=== PATIENT | female | born 1990 | race Caucasian/White ===

== ENCOUNTER 2017-05-04 00:39 | Emergency (ER) | payer MEDICAID ==
[2017-05-04 01:33] LABS: % BASOPHILS 0.7 % (0.0-2.0); % EOSINOPHILS 3.6 % (0.0-5.0); % LYMPHOCYTES 33.8 % (20.0-50.0); % MONOCYTES 6.2 % (2.0-10.0); % NEUTROPHILS 55.7 % (40.0-80.0); HEMATOCRIT 36.8 % (41.0-60); HEMOGLOBIN 12.5 gm/dL (12-16); MEAN CELL VOLUME 83.4 fl (81-100); MEAN CORPUSCULAR HEMOGLOBIN 28.3 pg (27.0-31.0); MEAN CORPUSCULAR HGB CONC 33.9 pg (28.0-36.0); PLATELET COUNT 226 Th/cmm (150-400); RED BLOOD COUNT 4.41 Mil/cmm (3.80-5.10); RED CELL DISTRIBUTION WIDTH 12.9 % (11.5-20.0)
[2017-05-04 01:57] LABS: ALB/GLOB RATIO 1.3 (1.0-1.8); ALKALINE PHOSPHATASE 66 U/L (34-104); ANION GAP 8.5 (7.0-16.0); BILIRUBIN,TOTAL 0.3 mg/dL (0.3-1.0); BUN - UREA NITROGEN 14 mg/dL (7-25); CALCIUM SERUM 9.2 mg/dL (8.6-10.3); CARBON DIOXIDE 27.2 mEq/L (21.0-31.0); CHLORIDE 106 mEq/L (98-107); CREATININE - SERUM 0.7 mg/dL (0.6-1.2); GLUCOSE 111 mg/dL (70-105); POTASSIUM SERUM 3.7 mEq/L (3.5-5.1); SGOT 57 U/L (13-39); SGPT/ALT 128 U/L (7-52); SODIUM SERUM 138 mEq/L (136-145)
--- NOTE | 2017-05-04 05:17 | ER Physician Documentation ---
DATE OF SERVICE: 05/04/2017 EMERGENCY ROOM NOTE Female patient, 27. Mother of 4 children. She came here on 05/04/2017 at 1:10 a.m., at which time after triage, the patient was brought to the bed #2. The patient said that she is having itching and some rash on the body and the lower extremities. She said many days ago her school had fumigation and now she is feeling that she does not know whether any mosquito bites because of fumigation or because of dust mites this has occurred. She says she is not taking any significant medication other than she takes ibuprofen that might be causing her the rashes. She came with these rashes and itches. Her past history is essentially benign. HISTORY OF PRESENT ILLNESS: Essentially same as above. PAST MEDICAL HISTORY: Benign and negative. Pediatric diseases. Otherwise, she had a gallbladder surgery when she was 13 years old. She had done x 4. FAMILY HISTORY: Father had diabetes mellitus. MEDICATIONS: The patient takes ibuprofen for pain. SOCIAL HISTORY: She does drink alcoholic beverages. She does not smoke. She does not take any drugs. She is a full code. She has no pain. ALLERGIES: None known allergies according to her. She came from home. At this hour, her review of systems is essentially benign and negative. She was told that she is prediabetic, that was about a year ago. She also said she has a lump on the left side of the abdomen which I checked, essentially looks like a big-type lipoma. She is weighing 220 pounds and the lipoma also looks like about 3 inches x 3 inches side. Somebody said lipoma, somebody said hernia, definitely it is not a hernia, probably it is a fatty tissue. She is very, very fat, short female. The patient is 5 feet 2 inches. PHYSICAL EXAMINATION: VITAL SIGNS: Show 97.4, 89, 19, 98/53, 97% saturation. GENERAL: The patient appears to be obese, short statured, few rashes occurred on the lower extremities are seen, occasional seen on the upper extremities, otherwise benign and negative. CENTRAL NERVOUS SYSTEM: Within normal limits. CHEST: Clear of rales. Trachea is central. Fairly good air entry in both lungs without any rales, rhonchi, or bronchial breathing. ABDOMEN: Shows a left-sided area in upper part of the abdomen just below the costal margin, there is a 3 x 3 area that looks like a fatty tissue, looks like a lipoma or a fatty mass is noted. Otherwise, abdomen is soft, benign, negative rash. SKIN: Few rashes here and there are noted on the lower extremities. Upper extremities, occasional rashes are noted. Otherwise, no rash on the chest, back, or any other place was noted. She said she wore a pajama and when coming home, she wore a half pant after she came to the hospital. CLINICAL IMPRESSION: The patient has some rash on the body, most likely maybe secondary to drug allergy, either ibuprofen that she takes for the pain here and there that she is getting, other possibility is that the patient may be having dust mite infection. Lyme disease needs to be ruled out. Other problems she had were gallbladder surgery 15 years ago and 4 years ago. She has a prediabetic condition diagnosed 1 year ago. We will check her lab out and see what it is and father also had diabetes mellitus. She has obesity. She was advised to lose her weight, tell her physician about losing weight in a timely fashion. Dietary consult; low-fat, low-cholesterol, low-saturated fat diet. At present I am giving Benadryl to the patient and Atarax has been given to the patient. The patient will be instructed not to take any ibuprofen and if anything wrong is detected the nurse will notify me and/or the patient's. JOB# [id number]
== END 2017-05-04 02:15 | disposition home or self-care (01) ==
LOC: ER 00:39
DX: R21 Rash and other nonspecific skin eruption (principal)
CPT/HCPCS: 36415-UA; 80053-TC; 85025-TC; Z7502

== ENCOUNTER 2018-03-14 22:59 | Emergency (ER) | payer MEDICAID ==
[2018-03-14] MEDS ORDERED: ceFAZolin 1 GM in Sodium Chloride 0.9% 50 ML IV ONE (23:33)
--- NOTE | 2018-03-15 01:05 | ED Physician Chart ---
ED Chief Complaint/HPI - Patient Information Date Seen:: 03/14/18 Time Seen:: 23:05 Chief Complaint:: R thigh redness & swelling History of Present Illness:: R thigh redness & swelling. Bee sting yesterday with subsequent redness and swelling. Allergies:: Allergies Allergy/AdvReac Type Severity Reaction Status Date / Time No Known Allergies Allergy Verified 03/14/18 23:03 Vitals:: Vital Signs - 8 hr 03/14/18 23:03 Temp 97.5 F HR 100 RR 19 BP 98/58 O2 Sat % 98 Historian:: Patient Review:: Nurse's Note Reviewed ED Review of Systems - Review of Systems General/Constitutional: No fever, No chills, No weight loss, No weakness, No diaphoresis, No edema, No loss of appetite Skin: Other (R thigh redness & swelling) Head: No headache, No light-headedness Eyes: No loss of vision, No pain, No diplopia ENT: No earache, No nasal drainage, No sore throat, No tinnitus Neck: No neck pain, No swelling, No thyromegaly, No stiffness, No mass noted Cardio Vascular: No chest pain, No palpitations, No PND, No orthopnea, No edema Pulmonary: No SOB, No cough, No sputum, No wheezing GI: No nausea, No vomiting, No diarrhea, No pain, No melena, No hematochezia, No constipation, No hematemesis G/U: No dysuria, No frequency, No hematuria Musculoskeletal: No bone or joint pain, No back pain, No muscle pain Endocrine: No polyuria, No polydipsia Psychiatric: No prior psych history, No depression, No anxiety, No suicidal ideation Hematopoietic: No bruising, No lymphadenopathy Allergic/Immuno: No urticaria, No angioedema Neurological: No syncope, No focal symptoms, No weakness, No paresthesia, No headache, No seizure, No dizziness, No confusion, No vertigo ED Past Medical History - Past Medical History Obtainable: Yes Past Medical History: No significant medical hx Family Medical History - Family Member Mother History Unknown: Yes ED Physical Exam - Physical Examination General/Constitutional: Awake, Alert, No distress, GCS 15, Non-toxic appearing, Ambulatory Other Gen/Cons comments:: morbidly obese Head: Atraumatic Other Skin comments:: R thigh redness and swelling that measures 10 inches x 10 inches in size. No wound. No lymphangitis. No groin lymph node. ENMT: Oropharynx nl Other ENMT comments:: airway patent Respiratory: Nl effort/Exclusion, Clear to Auscultation, No Wheeze/Rhonchi/Rales Cardio Vascular: RRR, No murmur, gallop, rubs, NL S1 S2 ED Assessment - Assessment General Assessment: sleeping comfortably after benadryl. repeat exam. The redness and swelling on the right thigh has visibly retracted from the marking by 3 inches. ED Septic Shock - . Is Septic Shock (SBP<90, OR Lactate>4 mmol\L) present?: No - <6hrs of presentation: Vital Signs: Vital Signs - 8 hr 03/14/18 23:03 Temp 97.5 F HR 100 RR 19 BP 98/58 O2 Sat % 98 ED Reassessment (Disposition) - Reassessment Reassessment Condition:: Improved - Diagnosis Diagnosis:: Right thigh redness and swelling cellulitis allergic reaction. - Aftercare/Follow up Instructions Aftercare/Follow-Up Instructions:: Refer to Discharge Instructions Notes:: ice packs, but not directly on the skin. no work until Saturday. - Patient Disposition Discharge/Transfer:: Home Condition at Disposition:: Stable, Improved
== END 2018-03-15 01:07 | disposition home or self-care (01) ==
LOC: ER 22:59
DX: T63.441A Toxic effect of venom of bees, accidental (unintentional), initial encounter (principal); L03.115 Cellulitis of right lower limb; Y92.89 Other specified places as the place of occurrence of the external cause
CPT/HCPCS: 99284; 96365; 96375; 81025; J3490; J0690; J2930; J1200; Z7502

== ENCOUNTER 2018-08-06 16:09 | Emergency (ER) | payer MEDICAID ==
[2018-08-06] MEDS ORDERED: Sodium Chloride 0.9% 1,000 ML IV ONE (16:40)
--- NOTE | 2018-08-06 16:45 | ED Physician Chart ---
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 [employer]ER Allergies:: Allergies Allergy/AdvReac Type Severity Reaction Status Date / Time No Known Allergies Allergy Verified 03/14/18 23:03 Vitals:: Vital Signs - 8 hr 08/06/18 16:30 Temp 98.3 F HR 83 RR 16 BP 100/64 O2 Sat % 98 Historian:: Patient Review:: Nurse's Note Reviewed, Old Chart Reviewed ED Review of Systems - Review of Systems General/Constitutional: No fever, No chills, No weight loss, No weakness, No diaphoresis, No edema, No loss of appetite Skin: No skin lesions, No rash, No bruising Head: No headache, No light-headedness Eyes: No loss of vision, No pain, No diplopia ENT: No earache, No nasal drainage, No sore throat, No tinnitus Neck: No neck pain, No swelling, No thyromegaly, No stiffness, No mass noted Cardio Vascular: No chest pain, No palpitations, No PND, No orthopnea, No edema Pulmonary: No SOB, No cough, No sputum, No wheezing GI: Nausea, Vomiting, Diarrhea, Pain, No melena, No hematochezia, No constipation, No hematemesis G/U: No dysuria, No frequency, No hematuria, No nacturia Quality Control Expert: No vaginal discharge, No abnormal vaginal bleed, No contraction Musculoskeletal: No bone or joint pain, No back pain, No muscle pain Endocrine: No polyuria, No polydipsia Psychiatric: No prior psych history, No depression, No anxiety, No suicidal ideation, No homicidal ideation, No auditory hallucination, No visual hallucination Hematopoietic: No bruising, No lymphadenopathy Allergic/Immuno: No urticaria, No angioedema Neurological: No syncope, No focal symptoms, No weakness, No paresthesia, No headache, No seizure, No dizziness, No confusion, No vertigo ED Past Medical History - Past Medical History Obtainable: Yes Past Medical History: No significant medical hx Family History: None Social History: Non Smoker, No Alcohol, No Drug Use, Single Surgical History: None Psychiatricy History: None Medication: Reviewed Family Medical History - Family Member Mother History Unknown: Yes ED Physical Exam - Physical Examination General/Constitutional: Awake, Well-developed, well-nourished, Alert, No distress, GCS 15, Non-toxic appearing, Ambulatory Head: Atraumatic Eyes: Lids, conjuctiva normal, PERRL, EOMI Skin: Nl inspection, No rash, No skin lesions, No ecchymosis, Well hydrated, No lymphadenopathy ENMT: External ears, nose nl, TM canals nl, Nasal exam nl, Lips, teeth, gums nl , Oropharynx nl, Tonsils nl Neck: Nontender, Full ROM w/o pain, No JVD, No nuchal rigidity, No bruit, No mass, No stridor Other Neck comments:: supple; no meningeal signs; no cervical tenderness Respiratory: Nl effort/Exclusion, Clear to Auscultation, No Wheeze/Rhonchi/Rales Cardio Vascular: RRR, No murmur, gallop, rubs, NL S1 S2, Carotid/Femoral/Distal pulses equal bilaterally GI: No tenderness/rebounding/guarding, No organomegaly, No hernia, Normal BS's, Nondistended, No mass/bruits, No McBurney tenderness, Rectum exam nl Other GI comments:: no pulsatile masses; Small Reducible Umbilical Hernia : No CVA tenderness Extremities: No tenderness or effusion, Full ROM, normal strength in all extremities, No edema, Normal digits & nails Neuro/Psych: Alert/oriented, DTR's symmetric, Normal sensory exam, Normal motor strength, Judgement/insight normal, Mood normal, Normal gait, No focal deficits Other Neuro/Psych comments:: no focal signs Misc: Normal back, No paraspinal tenderness ED Labs/Radiology/EKG Results - Lab Results Comments:: Reviewed - Radiology Results Comments:: + Umbilical Hernia; NAD - EKG Interpretations EKG Time:: 16:47 Rate & Rhythm: 76; NSR Comments:: non-specific st-t changes ED Septic Shock - . Is Septic Shock (SBP<90, OR Lactate>4 mmol\L) present?: No - <6hrs of presentation: Vital Signs: Vital Signs - 8 hr 08/06/18 16:30 Temp 98.3 F HR 83 RR 16 BP 100/64 O2 Sat % 98 ED Reassessment (Disposition) - Reassessment Reassessment:: pt tolerated po fluids well in ER; pt is asymptomatic upon discharge Reassessment Condition:: Improved - Diagnosis Diagnosis:: Abdominal Pain; N/V/D; AGE; Gastritis; Umbilical Hernia; Gastroenteritis; Viral Syndrome - Aftercare/Follow up Instructions Aftercare/Follow-Up Instructions:: Counseled pt regarding lab results/diagnosis & need follow up, Refer to Discharge Instructions, Counseled pt & family regarding lab results/diagnosis & need follow up Medication Prescribed:: Clear Liquid Diet; Encourage Fluids - Patient Disposition Discharge/Transfer:: Home Condition at Disposition:: Stable, Improved (X-Rays Instructions; RTER prn if existing s/s reoccur and/or any other new s/s occur; ACIs given for all above Dx ; Refer to GI Specialist/GI Surgeon/Tractor Operator Battery HENRY; F/U with PMD in one day or prn; RTER prn if concerned)
[2018-08-06 17:09] LABS: % EOSINOPHILS 4.1 % (0.0-5.0); % LYMPHOCYTES 33.8 % (20.0-50.0); % NEUTROPHILS 55.1 % (40.0-80.0); BASOPHILE ABSOLUTE 0.1 Th/cumm (0-0.2); EOSINOPHILE ABSOLUTE 0.3 Th/cmm (0.1-0.4); HEMATOCRIT 40.1 % (41.0-60); HEMOGLOBIN 12.8 gm/dL (12-16); LYMPHOCYTE ABSOLUTE 2.6 Th/cmm (1.5-3.0); MEAN CELL VOLUME 83.7 fl (81-100); MEAN CORPUSCULAR HEMOGLOBIN 26.8 pg (27.0-31.0); MEAN CORPUSCULAR HGB CONC 32.1 pg (28.0-36.0); MEAN PLATELET VOLUME 9.8 fl; MONOCYTE ABSOLUTE 0.5 Th/cmm (0.3-1.0); NEUTROPHILE ABSOLUTE 4.3 Th/cmm (1.8-8.0); PLATELET COUNT 251 Th/cmm (150-400); RED BLOOD COUNT 4.79 Mil/cmm (3.80-5.10); RED CELL DISTRIBUTION WIDTH 12.7 % (11.5-20.0); WHITE BLOOD COUNT 7.8 Th/cmm (4.8-10.8)
[2018-08-06 17:19] LABS: ALB/GLOB RATIO 1.3 (1.0-1.8); ALBUMIN 3.8 gm/dL (3.7-5.3); ALKALINE PHOSPHATASE 77 U/L (34-104); AMYLASE SERUM 41 U/L (29-103); BILIRUBIN,TOTAL 0.2 mg/dL (0.3-1.0); BUN - UREA NITROGEN 9 mg/dL (7-25); CALCIUM SERUM 9.2 mg/dL (8.6-10.3); CARBON DIOXIDE 26.8 mEq/L (21.0-31.0); CHLORIDE 105 mEq/L (98-107); CHOLESTEROL 161 mg/dL (<200); CREATININE - SERUM 0.6 mg/dL (0.6-1.2); CREATININE KINASE 79 U/L (30-223); GFR AFRICAN-AMERICAN > 60.0 ml/min (>90); GFR NON AFRICAN-AMERICAN > 60.0 ml/min; GLUCOSE 109 mg/dL (70-105); HDL -HIGH DENSITY LIPOPROTEIN 36 mg/dL (23-92); LIPASE 16 U/L (11-82); POTASSIUM SERUM 3.8 mEq/L (3.5-5.1); SGOT 33 U/L (13-39); SGPT/ALT 68 U/L (7-52); SODIUM SERUM 139 mEq/L (136-145); TOTAL PROTEIN,SERUM 6.8 gm/dL (6.0-8.3); TRIGLYCERIDES 196 mg/dL (<150)
[2018-08-06 17:34] LABS: URINE SOURCE RANDOM
[2018-08-06 17:40] LABS: URINE BILIRUBIN NEGATIVE (NEGATIVE); URINE BLOOD NEGATIVE (NEGATIVE); URINE GLUCOSE (UA) NEGATIVE (NEGATIVE); URINE KETONE TRACE mg/dL (NEGATIVE); URINE LEUKOCYTE ESTERASE NEGATIVE (NEGATIVE); URINE NITRATE NEGATIVE (NEGATIVE); URINE PROTEIN NEGATIVE (NEGATIVE); URINE UROBILINOGEN 0.2 E.U./dL (0.2 - 1.0)
[2018-08-06 18:22] LABS: URINE CLARITY CLEAR (CLEAR); URINE COLOR YELLOW
[2018-08-06 18:23] LABS: URINE MICROSCOPIC INDICATED? NO
[2018-08-06 18:40] LABS: INR < 0.50 (0.5-1.4)
[2018-08-06 18:44] LABS: PROTHROMBIN TIME (TEST) 8.9 SECONDS (9.5-11.5)
--- NOTE | 2018-08-07 08:36 | Diagnostic Imaging Report ---
Exam: CT examination abdomen pelvis. HISTORY: Abdominal pain vomiting. Total DLP equals 952 CTDI equals 17.5 Findings: Multiple contiguous thin section of the abdomen pelvis obtained from lower thorax to pubic symphysis without the administration of oral or intravenous contrast material, no prior studies available for comparison. The study demonstrates normal aeration of the lung parenchyma the bases. The liver and spleen intact. There is evidence of previous cholecystectomy. The adrenal glands are normal. The kidneys demonstrate no evidence of obstructive uropathy or nephrolithiasis. The appendix is intact. No free fluid is noted. There is no evidence of diverticular disease of diverticulitis. The uterus is prominent. Small fat-containing umbilical hernia is noted. IMPRESSION: Essentially unremarkable examination of the abdomen pelvis.
== END 2018-08-06 19:40 | disposition home or self-care (01) ==
LOC: ER 16:09
DX: K52.9 Noninfective gastroenteritis and colitis, unspecified (principal); K29.00 Acute gastritis without bleeding; K42.9 Umbilical hernia without obstruction or gangrene; B34.9 Viral infection, unspecified
CPT/HCPCS: 99284; 96374; 93005; 74176; 84484; 83880; 36415; 85025; 85610; 81003; 82150; 82550; 84703; 81025; 83690; 80053; 80061; J2405; J7030; Z7502

== ENCOUNTER 2018-10-27 21:04 | Emergency (ER) | payer MEDICAID ==
[2018-10-27] MEDS ORDERED: Albuterol/Ipratropium Neb 3 ML AERS HHN ONE ×2 (21:50→21:54)
--- NOTE | 2018-10-27 22:01 | ED Physician Chart ---
ED Chief Complaint/HPI - Patient Information Date Seen:: 10/27/18 Time Seen:: 21:56 Chief Complaint:: cough congestion asthma History of Present Illness:: cough congestion asthma in 28 yr old female with worsening cough over the last 3 wks and greenish phlegm hx os asthma on inhalers and did 2 HHN TXS AT HOME Allergies:: Allergies Allergy/AdvReac Type Severity Reaction Status Date / Time No Known Allergies Allergy Verified 03/14/18 23:03 Vitals:: Vital Signs - 8 hr 10/27/18 21:17 Temp 98.2 F HR 106 RR 18 BP 111/52 O2 Sat % 97 ED Review of Systems - Review of Systems General/Constitutional: Fever Skin: No skin lesions, No rash, No bruising Head: No headache, No light-headedness Eyes: No loss of vision, No pain, No diplopia ENT: No earache, No nasal drainage, No sore throat, No tinnitus Neck: No neck pain, No swelling, No thyromegaly, No stiffness, No mass noted Cardio Vascular: Chest pain Pulmonary: SOB, Cough GI: No nausea, No vomiting, No diarrhea, No pain, No melena, No hematochezia, No constipation, No hematemesis G/U: No dysuria, No frequency, No hematuria Musculoskeletal: No bone or joint pain, No back pain, No muscle pain Endocrine: No polyuria, No polydipsia Psychiatric: No prior psych history, No depression, No anxiety, No suicidal ideation Hematopoietic: No bruising, No lymphadenopathy Allergic/Immuno: No urticaria, No angioedema Neurological: No syncope, No focal symptoms, No weakness, No paresthesia, No headache, No seizure, No dizziness, No confusion, No vertigo ED Past Medical History - Past Medical History Past Medical History: Asthma/COPD, Other (BRONCHITIS) Family Medical History - Family Member Mother History Unknown: Yes ED Physical Exam - Physical Examination General/Constitutional: Awake, Well-developed, well-nourished, Alert, No distress, GCS 15, Non-toxic appearing, Ambulatory Head: Atraumatic Eyes: Lids, conjuctiva normal, PERRL, EOMI Skin: Nl inspection, No rash, No skin lesions, No ecchymosis, Well hydrated, No lymphadenopathy ENMT: External ears, nose nl, Nasal exam nl, Lips, teeth, gums nl Neck: Nontender, Full ROM w/o pain, No JVD, No nuchal rigidity, No bruit, No mass, No stridor Respiratory: Nl effort/Exclusion, Clear to Auscultation, No Wheeze/Rhonchi/Rales Other Respiratory comments:: OCCAS RHONCHICOUGH CONGESTION CHEST AND BACK PAIN FROM TOO MUCH COUGHING Cardio Vascular: RRR, No murmur, gallop, rubs, NL S1 S2 GI: No tenderness/rebounding/guarding, No organomegaly, No hernia, Normal BS's, Nondistended, No mass/bruits, No McBurney tenderness : No CVA tenderness Extremities: No tenderness or effusion, Full ROM, normal strength in all extremities, No edema, Normal digits & nails Neuro/Psych: Alert/oriented, DTR's symmetric, Normal sensory exam, Normal motor strength, Judgement/insight normal, Mood normal, Normal gait, No focal deficits Misc: Normal back, No paraspinal tenderness ED Assessment - Assessment General Assessment: BRONCHITIS ASTHMA EXACERBATION ED Septic Shock - . Is Septic Shock (SBP<90, OR Lactate>4 mmol\L) present?: No - <6hrs of presentation: Vital Signs: Vital Signs - 8 hr 10/27/18 21:17 Temp 98.2 F HR 106 RR 18 BP 111/52 O2 Sat % 97 ED Reassessment (Disposition) - Reassessment Reassessment:: BRONCHITIS ASTHMA EXACERBATION - Diagnosis Diagnosis:: ABOVE IMPROVED S/P DUONEB WITH DECADRON ROCEPHIN ONE GM IM AND SOLUMEDROL 125 MG IM - Aftercare/Follow up Instructions Medication Prescribed:: ZPACK AND MEDROL DOSE PACK - Patient Disposition Discharge/Transfer:: Home Condition at Disposition:: Stable
== END 2018-10-27 22:18 | disposition home or self-care (01) ==
LOC: ER 21:04
DX: J45.901 Unspecified asthma with (acute) exacerbation (principal)
CPT/HCPCS: 99283; 96372 ×2; 94640; J0696; J2930; Z7502

== ENCOUNTER 2019-01-07 12:23 | Emergency (ER) | payer MEDICAID ==
--- NOTE | 2019-01-07 15:39 | ED Physician Chart ---
ED Chief Complaint/HPI - Patient Information Date Seen:: 01/07/19 Time Seen:: 12:30 Chief Complaint:: Fever History of Present Illness:: onset x 2 days of fever, S/T, cough, and congestion; pt denies trauma, LOC, ALOC , AMS, H/As, E/As, neck pain, C/P, SOB, Abd. Pain, A/N/V/D/C, chills, or urinary s/s; LNMP: 01/04/19; pt denies ; pt is eating and urinating well ; pt last urinated one hour PICK UP Allergies:: Allergies Allergy/AdvReac Type Severity Reaction Status Date / Time No Known Allergies Allergy Verified 03/14/18 23:03 Vitals:: Vital Signs - 8 hr 01/07/19 12:32 Temp 98.5 F HR 104 RR 16 BP 101/53 O2 Sat % 97 Historian:: Patient, Family Member Review:: Nurse's Note Reviewed, Old Chart Reviewed ED Review of Systems - Review of Systems General/Constitutional: No fever, No chills, No weight loss, No weakness, No diaphoresis, No edema, No loss of appetite Skin: No skin lesions, No rash, No bruising Head: No headache, No light-headedness Eyes: No loss of vision, No pain, No diplopia ENT: No earache, No nasal drainage, No sore throat, No tinnitus Neck: No neck pain, No swelling, No thyromegaly, No stiffness, No mass noted Cardio Vascular: No chest pain, No palpitations, No PND, No orthopnea, No edema Pulmonary: No SOB, No cough, No sputum, Wheezing GI: No nausea, No vomiting, No diarrhea, No pain, No melena, No hematochezia, No constipation, No hematemesis G/U: No dysuria, No frequency, No hematuria, No nacturia Dragger Out: No vaginal discharge, No abnormal vaginal bleed, No contraction Musculoskeletal: No bone or joint pain, No back pain, No muscle pain Endocrine: No polyuria, No polydipsia Psychiatric: No prior psych history, No depression, No anxiety, No suicidal ideation, No homicidal ideation, No auditory hallucination, No visual hallucination Hematopoietic: No bruising, No lymphadenopathy Allergic/Immuno: No urticaria, No angioedema Neurological: No syncope, No focal symptoms, No weakness, No paresthesia, No headache, No seizure, No dizziness, No confusion, No vertigo ED Past Medical History - Past Medical History Obtainable: Yes Past Medical History: Asthma/COPD Family History: HTN Social History: Non Smoker, No Alcohol, No Drug Use, Surgical History: None Psychiatricy History: None Medication: Reviewed Family Medical History - Family Member Mother History Unknown: Yes ED Physical Exam - Physical Examination General/Constitutional: Awake, Well-developed, well-nourished, Alert, No distress, GCS 15, Non-toxic appearing, Ambulatory Head: Atraumatic Eyes: Lids, conjuctiva normal, PERRL, EOMI Skin: Nl inspection, No rash, No skin lesions, No ecchymosis, Well hydrated, No lymphadenopathy ENMT: External ears, nose nl, TM canals nl, Nasal exam nl, Lips, teeth, gums nl , Tonsils nl Other ENMT comments:: Pharynx: Injected; no exudates; no abscesses; no FBs; no airway obstruction; + Nasal Congestion Neck: Nontender, Full ROM w/o pain, No JVD, No nuchal rigidity, No bruit, No mass, No stridor Other Neck comments:: supple; no meningeal signs; no cervical tenderness; no bruits Respiratory: Nl effort/Exclusion, Clear to Auscultation, No Wheeze/Rhonchi/Rales Cardio Vascular: RRR, No murmur, gallop, rubs, NL S1 S2, Carotid/Femoral/Distal pulses equal bilaterally GI: No tenderness/rebounding/guarding, No organomegaly, No hernia, Normal BS's, Nondistended, No mass/bruits, No McBurney tenderness, Rectum exam nl Other GI comments:: no pulsatile masses : No CVA tenderness Extremities: No tenderness or effusion, Full ROM, normal strength in all extremities, No edema, Normal digits & nails Neuro/Psych: Alert/oriented, DTR's symmetric, Normal sensory exam, Normal motor strength, Judgement/insight normal, Mood normal, Normal gait, No focal deficits Other Neuro/Psych comments:: no focal signs Misc: Normal back, No paraspinal tenderness ED Septic Shock - . Is Septic Shock (SBP<90, OR Lactate>4 mmol\L) present?: No - <6hrs of presentation: Vital Signs: Vital Signs - 8 hr 01/07/19 12:32 Temp 98.5 F HR 104 RR 16 BP 101/53 O2 Sat % 97 ED Reassessment (Disposition) - Reassessment Reassessment:: pt tolerated po fluids well in ER; pt is asymptomatic upon discharge Reassessment Condition:: Improved - Diagnosis Diagnosis:: Congestion; Sinusitis; Sore Throat; Pharyngitis; Cough; Bronchitis; Tachycardia ; Fever; URI - Aftercare/Follow up Instructions Aftercare/Follow-Up Instructions:: Counseled pt regarding lab results/diagnosis & need follow up, Refer to Discharge Instructions, Counseled pt & family regarding lab results/diagnosis & need follow up Medication Prescribed:: Rx: Azithromycin/Z-Pack; (#6); Tylenol/Salt Water Gargles/Proventil Inhaler/ Cool Mist Vaporizer: take all medications as prescribed; encourage fluids - Patient Disposition Discharge/Transfer:: Home Condition at Disposition:: Stable, Improved (RTER prn if existing s/s reoccur and/or get worse and/or any other new s/s occur; ACIs given for all above Dx; Refer to ENT Specialist/Flying Ii Instructor HENRY; F/U with PMD in one day or prn; RTER prn if concerned)
== END 2019-01-07 13:14 | disposition home or self-care (01) ==
LOC: ER 12:23
DX: J40 Bronchitis, not specified as acute or chronic (principal); J06.9 Acute upper respiratory infection, unspecified; R00.0 Tachycardia, unspecified; J44.9 Chronic obstructive pulmonary disease, unspecified
CPT/HCPCS: Z7502